=== PATIENT | female | born 1950 | race Caucasian/White ===

== ENCOUNTER → 2016-12-12 | Outpatient (CLI) | payer MEDICARE | END | disposition home or self-care (01) | LOC: GMAJ 13:57 | PROVIDERS: ATTEND Family Medicine | DX: E78.1 Pure hyperglyceridemia (principal); I10 Essential (primary) hypertension ==

== ENCOUNTER → 2016-12-20 | Outpatient (CLI) | payer MEDICARE ==
--- NOTE | 2016-12-20 13:40 | MRI ---
EXAM DESCRIPTION: Lumbar Spine w/o Contrast CLINICAL HISTORY: LOW BACK PAIN. Lumbar disc disease. Prior lumbar surgeries. History of polio. COMPARISON: MRI lumbar spine 07/10/2014 TECHNIQUE: MRI of the lumbar spine is performed according to our usual protocol with axial and sagittal multi sequence imaging. FINDINGS: The designated L5-S1 disc space is on axial T2 image 3. Moderate to severe levoconvex curvature of the mid lumbar spine is again demonstrated. Vertebral body statures maintained. Modic type II endplate changes at L1-L2, L3-L4, and L4-L5. There is no acute fracture or destructive osseous lesion. The conus medullaris terminates normally. L1-2: Disc desiccation with moderate disc narrowing. Moderate to severe facet hypertrophy. No evidence of spinal canal or neural foraminal stenosis. L2-3: Disc desiccation. Mild disc narrowing to the right of midline. Severe facet hypertrophy with ligamentum flavum thickening. No evidence of spinal canal or neural foraminal stenosis. L3-4: Disc desiccation. Severe facet hypertrophy. No evidence of spinal canal or neural foraminal stenosis. L4-5: Disc desiccation. Severe facet hypertrophy with suspected fusion in the posterior elements. 4 mm leftward eccentric posterior disc osteophyte complex with multifactorial moderate spinal canal stenosis with residual AP diameter of the thecal sac measuring 6.5 mm. Severe left greater than right neural foraminal stenosis. L5-S1: Severe facet hypertrophy. Suspected fusion in the posterior elements. Mild posterior disc bulge and osteophytic ridging of the endplates. Moderate to severe bilateral neural foraminal stenosis mainly on the basis of facet hypertrophy. The spinal canal is patent. IMPRESSION: 1. Moderate to severe levoconvex scoliosis in the lumbar spine is again demonstrated. 2. At L4-L5, moderate spinal canal stenosis and severe left greater than right neural foraminal stenosis are again demonstrated, and are not significantly changed from the prior exam. 3. At L5-S1, there is moderate to severe bilateral neural foraminal stenosis. 4. Other findings as above. Electronically signed by: Toan Haywood MD 12/20/2016 1:39 PM CDT
== END | disposition home or self-care (01) ==
LOC: MRI 09:48
PROVIDERS: ATTEND Family Medicine
DX: M51.27 Other intervertebral disc displacement, lumbosacral region (principal)

== ENCOUNTER → 2017-11-27 | Outpatient (CLI) | payer MEDICARE | LOC: GMAJ 17:09 | PROVIDERS: ATTEND Family Medicine | DX: I10 Essential (primary) hypertension (principal) ==

== ENCOUNTER → 2018-06-11 | Outpatient (CLI) | payer MEDICARE | LOC: GMAJ 16:27 | PROVIDERS: ATTEND Family Medicine | DX: E53.8 Deficiency of other specified B group vitamins (principal); E55.9 Vitamin D deficiency, unspecified ==

== ENCOUNTER → 2018-06-14 | Outpatient (CLI) | payer MEDICARE ==
--- NOTE | 2018-06-14 16:39 | CT ---
EXAM DESCRIPTION: Chest w/Contrast : Computed Tomography. CLINICAL HISTORY: COUGH COMPARISON: Portable chest x-ray 05/18/2017. TECHNIQUE: Spiral-axial scans at 5.0 mm intervals through the lungs and thorax with IV contrast. 2.5 mm lung algorithm axial reconstructions. Coronal sagittal 2.0 Mm reconstructions. No adverse reactions. Total Exam DLP: 794.14 mGy-cm. This exam was performed according to our departmental dose-optimization program which includes automated exposure control, adjustment of the mA and/or kV according to patient size and/or use of iterative reconstruction technique; to reduce radiation dose to as low as reasonably achievable (ALARA). FINDINGS: Tiny small blebs in the parenchyma more prevalent in the bilateral upper lobes compared to the bilateral lower lung zheng. No abnormal nodules masses or infiltrates bilaterally. Atelectasis and volume loss in the left lower lobe due to large medial posterior left gretchen- diaphragmatic hernia containing the stomach. No pleural effusion or pneumothorax bilaterally. Thyroid gland enhances well in the base of the neck. No abnormally sized lymph nodes or soft tissue masses in the mediastinum, hilum, axilla or neck base. Asymmetric density in the lower outer quadrant of the right breast. Asymmetric fatty tissue with edema or increased fatty density abutting the left lower lung base and extends to the lateral left abdomen subcutaneous tissue. No definite mass.. Upper spleen is partially within the hernia described above. Included peritoneal space shows no free air or fluid. Surgical clips in the gallbladder fossa with no fluid. Minimal dilation of the common bile duct. Included pancreas is negative. Thoracic spondylosis. Dextroscoliosis of the mid and upper thoracic spine. Included lumbar spine with levoscoliosis and spondylosis from T1 to L2. IMPRESSION: 1. Minimal centrilobular type emphysematous changes with no abnormal nodule mass or infiltrate. 2. Large posterior medial hernia in the left hemidiaphragm containing the fundus and upper body of the stomach in the upper spleen along with mesenteric fat. No gastric volvulus. Mass effect with atelectasis on the left lower lobe. Consider surgical evaluation if this hernia is compromising pulmonary or gastrointestinal function. 3. Prominence and edema of subcutaneous tissues lateral to the left thoracoabdominal wall extending inferiorly. No definite mass or fluid collection. 4. Asymmetric density in the lower outer quadrant of the right breast. PACS shows most recent mammogram at this facility was July 2015. Consider bilateral diagnostic digital breast tomosynthesis mammography. Electronically signed by: Beny Bustillos MD 06/14/2018 4:38 PM CDT
== END ==
LOC: CT 09:40
PROVIDERS: ATTEND Family Medicine
DX: R05 Cough (principal); K44.9 Diaphragmatic hernia without obstruction or gangrene

== ENCOUNTER → 2018-07-05 | Outpatient (CLI) | payer MEDICARE ==
--- NOTE | 2018-07-05 17:10 | RAD ---
EXAM DESCRIPTION: Barium Swallow: Rad-Fluoroscopy. CLINICAL HISTORY: DIAPHRAGMATIC HERNIA WITHOUT OBSTRUCTION. 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 Sensation of food being stuck in the distal esophagus. Reflux. Occasional abdominal pain. COMPARISON: None. TECHNIQUE: The patient swallowed barium pill with water. The patient swallowed gas-producing granules, and water, prior to beginning on the fluoroscopic table. Patient then drank heavy density barium through a straw under fluoroscopic visualization in the semiprone position. The images were obtained with the patient prone supine and decubitus. 37 fluoroscopic cine loop images. 18 static fluoroscopic images. Total fluoroscopy time was 3.5 minutes. DAP: not recorded. FINDINGS: Patient has delayed primary peristaltic wave distally. No irene pharyngeal aspiration. Distal esophagus angled almost 90 degrees posteriorly before entering the gastroesophageal junction. The fundus and the proximal body of the stomach, with para-esophageal hernia above the left gretchen-diaphragm in the posterior direction. This is best demonstrated on cine series #1, image 2. Thickened mucosal folds in the fundus. When changing positions on the table, marked gastroesophageal reflux was noted almost at the level of the larynx. Breast demonstrated on RF series 7, image 17. Remainder of the stomach well distended with gas and contrast material with no thickened folds in the distal body and antrum or pylorus. Duodenal bulb well distended. No mucosal duodenal lesions or mass effect. IMPRESSION: 1. Marked paraesophageal hernia involving the fundus and the proximal body of the stomach in the medial posterior left hemidiaphragm. Distal esophagus angulated almost 90 degrees. Marked gastroesophageal reflux almost to the larynx. 2. Thickened folds in the fundus and body of the stomach could represent gastritis. No other intrinsic lesions or mass effect. No abnormal is unremarkable. Electronically signed by: Beny Bustillos MD 07/05/2018 5:09 PM CDT
== END ==
LOC: RAD 07:44
PROVIDERS: ATTEND Family Medicine
DX: K44.9 Diaphragmatic hernia without obstruction or gangrene (principal)

== ENCOUNTER 2018-09-08 12:47 | Emergency (ER) | payer MEDICARE, OTHER ==
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
[2018-09-08 13:23] VITALS: TEMP 97.4
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
[2018-09-08 14:41] VITALS: BP 145/84; O2SAT 98
== END 2018-09-08 14:40 | disposition home or self-care (01) ==
LOC: ER 12:47
DX: S82.55XA Nondisplaced fracture of medial malleolus of left tibia, initial encounter for closed fracture (principal); K21.9 Gastro-esophageal reflux disease without esophagitis; W23.0XXA Caught, crushed, jammed, or pinched between moving objects, initial encounter; V49.59XA Passenger injured in collision with other motor vehicles in traffic accident, initial encounter; Y92.410 Unspecified street and highway as the place of occurrence of the external cause; Z86.12 Personal history of poliomyelitis; Z99.3 Dependence on wheelchair; Z79.899 Other long term (current) drug therapy; Z87.891 Personal history of nicotine dependence; Z88.8 Allergy status to other drugs, medicaments and biological substances

== ENCOUNTER → 2018-09-14 | Outpatient (CLI) | payer MEDICARE ==
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
== END ==
LOC: RAD 09:03
PROVIDERS: ATTEND Orthopaedic Surgery
DX: S82.54XA Nondisplaced fracture of medial malleolus of right tibia, initial encounter for closed fracture (principal)

== ENCOUNTER → 2018-10-01 | Outpatient (CLI) | payer MEDICARE ==
--- NOTE | 2018-10-01 09:42 | RAD ---
EXAM DESCRIPTION: Ankle,Left 3 Views CLINICAL HISTORY: ANKLE PAIN COMPARISON: 14 September 2018 TECHNIQUE: 3 views left FINDINGS: The exam is obtained through casting material. A fracture of the medial malleolus is observed. The injury is essentially nondisplaced. The ankle mortise is intact. No callus formation is visualized through the cast IMPRESSION: Left medial malleolar fracture Electronically signed by: Dao Monteiro MD 10/01/2018 9:41 AM [facility]
== END ==
LOC: RAD 09:07
PROVIDERS: ATTEND Orthopaedic Surgery
DX: S82.892A Other fracture of left lower leg, initial encounter for closed fracture (principal)

== ENCOUNTER → 2018-10-12 | Outpatient (CLI) | payer MEDICARE ==
--- NOTE | 2018-10-12 13:33 | RAD ---
EXAM DESCRIPTION: Ankle,Left 3 Views CLINICAL HISTORY: CLOSED FX OF MEDIAL MALLEOLUS COMPARISON: October 01, 2018 IMPRESSION: 3 views of the left ankle again demonstrate mildly displaced medial malleolar fracture similar to previous exam with moderate lucency around the fracture site and no significant callus formation or bridging bony union at this time. Ankle mortise appears maintained. Osseous structures are diffusely osteopenic and fiberglass cast around the ankle obscures fine bony detail. Electronically signed by: Fox Green MD 10/12/2018 1:31 PM [facility]
== END ==
LOC: RAD 10:03
PROVIDERS: ATTEND Orthopaedic Surgery
DX: S82.55XD Nondisplaced fracture of medial malleolus of left tibia, subsequent encounter for closed fracture with routine healing (principal)

== ENCOUNTER → 2018-11-05 | Outpatient (CLI) | payer MEDICARE ==
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
== END ==
LOC: RAD 07:53
PROVIDERS: ATTEND Orthopaedic Surgery
DX: S82.55XD Nondisplaced fracture of medial malleolus of left tibia, subsequent encounter for closed fracture with routine healing (principal)

== ENCOUNTER → 2018-11-16 | Outpatient (CLI) | payer MEDICARE | LOC: GMAJ 11:10 | PROVIDERS: ATTEND Family Medicine | DX: E53.8 Deficiency of other specified B group vitamins (principal); E55.9 Vitamin D deficiency, unspecified ==

== ENCOUNTER → 2019-03-12 | Outpatient (CLI) | payer MEDICARE | LOC: LAB.O 12:29 | PROVIDERS: ATTEND Orthopaedic Surgery | DX: Z01.818 Encounter for other preprocedural examination (principal) ==

== ENCOUNTER 2019-03-19 05:40 | Day surgery (SDC) | payer MEDICARE ==
--- NOTE | 2019-03-18 13:37 | HP ---
CHIEF COMPLAINT: Left hand numbness. HISTORY OF PRESENT ILLNESS: Brian is a 68-year-old female that we had talked about having carpal tunnel release in the past. She has had numbness going on in her hand for several years. She has had no new trauma and states that it is now numb all the time. It does worsen with certain activities. Because of the presence of it and the lack of response to conservative measures, she has requested operative intervention. After discussing the risks, benefits and alternatives to that, she has given informed consent. PAST SURGICAL HISTORY: 1. Spinal fusion. 2. . 3. Cholecystectomy. 4. Hysterectomy. 5. Bilateral rotator cuff repair. 6. Cystectomy. 7. Carpal tunnel release. 8. Hiatal hernia repair. 9. Ulnar nerve transposition. MEDICATIONS: 1. Bisoprolol. 2. Gabapentin. 3. Dexilant. 4. Clonazepam. 5. Duloxetine. 6. Cyclobenzaprine. 7. Aleve. 8. Fluticasone. ALLERGIES: DEMEROL, MORPHINE, REGLAN. CODE STATUS: Full code. IMMUNIZATIONS: Up to date. SOCIAL HISTORY: The patient does not smoke or use any illicit drugs. She does drink on occasion. FAMILY HISTORY: None pertinent to today's complaint. REVIEW OF SYSTEMS: Negative except as indicated in the History of Present Illness. PHYSICAL EXAMINATION: VITAL SIGNS: Blood pressure 129/73. Pulse 81. Height 4'10". Weight 155 pounds. MENTAL STATUS: The patient is awake, alert, and is able to give a good history and participate in the physical. The patient is oriented to person, place and time. SKIN: Normal tone and turgor. MUSCULOSKELETAL: She has positive carpal compression test and significant thenar atrophy. She has paresthesias at rest in the distribution of the median nerve. She has a warm and well perfused extremity. She has no deformities in the hand and shows full range of motion in the shoulder, elbow, wrist and digits. ASSESSMENT: 1. Carpal tunnel syndrome. PLAN: The plan at this point is for carpal tunnel release. Brian and I have discussed in the past the risks, benefits and alternatives to this and we have also discussed the potential for limited recovery just given her presence of symptoms now on a continual basis. After considering the risks, benefits and alternatives to this, she has given informed consent. #[id number] [facility]
[2019-03-19] MEDS ORDERED: BUPIVACAINE 0.25% INJ 30 ML VIAL INJ ONE (08:44)
[2019-03-19] MEDS ORDERED: LIDOCAINE 1% 10 ML VIAL INJ ONE ×2 (08:45→10:00)
[2019-03-19] MEDS ORDERED: PROPOFOL 200 MG/20 ML VIAL IV ONE (10:00)
[2019-03-19] MEDS ORDERED: SODIUM CHL 0.9% 100ML MINI-BAG 100 ML IVPB ONE (10:19)
[2019-03-19] MEDS ORDERED: ceFAZolin SODIUM 1 GM VIAL ONE (10:19)
[2019-03-19] MEDS ORDERED: LACTATED RINGERS 1,000 ML ONE (10:19)
[2019-03-19] MEDS ORDERED: fentaNYL CITRATE INJ 50 MCG/ML AMP ONE (11:34)
[2019-03-19] MEDS ORDERED: MIDAZOLAM INJ 2 MG/2 ML VIAL ONE (11:34)
[2019-03-19] MEDS: ceFAZolin SODIUM 1 GM VIAL ONE ×2 (12:05→12:10)
[2019-03-19] MEDS: VANCOMYCIN HCL INJ 1,000 MG VIAL IVPB ONE ×2 (12:06→12:10)
[2019-03-19 14:24] VITALS: BP 115/75; TEMP 98.1; O2SAT 98
--- NOTE | 2019-03-22 09:06 | OP ---
DATE OF PROCEDURE: 03/19/19 PREOPERATIVE DIAGNOSIS: 1. Carpal tunnel syndrome. POSTOPERATIVE DIAGNOSIS: 1. Carpal tunnel syndrome. PROCEDURE: 1. Carpal tunnel release. SURGEON: Reginaldo Canales MD. DISTRICT OPERATIONS MANAGER: Beny Neville CST, SA-C. ANESTHESIA: Local with sedation. COMPLICATIONS: None. FINDINGS: 1. Advanced thenar atrophy. 2. Narrowing of the median nerve across the carpal tunnel. INDICATION: Ms. Olivas has a long history of carpal tunnel syndrome. She has delayed undergoing carpal tunnel release for quite some time. She finally decided to pursue that. After discussing the risks, benefits and alternatives to that, the patient has given informed consent for carpal tunnel release. PROCEDURE: The patient was brought to the Operating Room and placed in the supine position. Sedation was administered and local anesthetic was injected into the operative area under sterile conditions. After the injection of anesthetic, the arm was sterilely prepped and draped. A longitudinal incision was made directly overlying the transverse carpal ligament and blunt dissection was carried down to the ligament. The transverse carpal ligament was sharply transected along its length and a [place] elevator was used to ensure complete release of the ligament. Once release had been confirmed, the wound was thoroughly irrigated and the wound was closed with Nylon suture. A sterile dressing was placed and the patient was taken to the Day Surgery Unit. POSTOPERATIVE PLAN: The patient has been encouraged to do range of motion of the digits and will followup with us in two days. #[id number] [facility]
== END 2019-03-19 13:20 | disposition home or self-care (01) ==
LOC: AMB 05:40
PROVIDERS: ATTEND Orthopaedic Surgery
DX: G56.02 Carpal tunnel syndrome, left upper limb (principal); I10 Essential (primary) hypertension; G14 Postpolio syndrome; K21.9 Gastro-esophageal reflux disease without esophagitis; M51.36 Other intervertebral disc degeneration, lumbar region; G25.81 Restless legs syndrome; D50.9 Iron deficiency anemia, unspecified; Z98.1 Arthrodesis status; Z90.710 Acquired absence of both cervix and uterus; Z88.5 Allergy status to narcotic agent; Z88.8 Allergy status to other drugs, medicaments and biological substances; Z79.899 Other long term (current) drug therapy
CPT/HCPCS: 01810; 64721; 80307; J0690; J2250; J3010; J3370; J3490; J7050; J7120

== ENCOUNTER 2019-07-15 16:16 | Emergency (ER) | payer MEDICARE ==
[2019-07-15] MEDS ORDERED: SODIUM CHLORIDE 0.9% 1000ML 1,000 ML IVS ONE (16:39)
[2019-07-15] MEDS ORDERED: SODIUM CHLORIDE 0.9% (FLUSH) 10 ML SYG IV PRN (16:39)
[2019-07-15] MEDS ORDERED: PIPERACILLIN/TAZOBACTAM 4.5 GM in SODIUM CHLORIDE 0.9% 100ML 100 ML IVPB ONE (16:41)
[2019-07-15] MEDS ORDERED: fentaNYL CITRATE INJ 50 MCG/ML AMP IV ONE (16:41)
[2019-07-15] MEDS ORDERED: ONDANSETRON INJ 4 MG/2 ML VIAL IV ONE (16:41)
--- NOTE | 2019-07-15 16:49 | ED.PDOC ---
History of Present Illness - General Chief Complaint: Abdominal Pain Time Seen by Provider: 07/15/19 16:31 Information Source: patient - History of Present Illness Initial Comments: 69 y/o F with hx of polio myelitis presents to the ED c/o worsening abd and back pain over the last 2 days. She has a hx of chronic back and abd pain but sx have been worse over the last few weeks and she saw her PCP last week and was treated for constipation. She has since been having BMs but pain has persisted. She takes home pain medications only when needed and took it last night without improvement in sx. She has a second fundiplication done in Oct [address] Aguiar at [facility] in [facility] and had been good up until April with her stomach. Since then it seems that she has gone down hill. She states that she has been trying to eat but sx are significantly worse after eating. Pain now is 10/10 in severity and nothing she does seems to make it significantly better or worse. She denies fever/chills. No diarrhea or blood in stool. She was sent to the ED from her PCP office for a WBC if 22k and concerns for infection and that she needed a CT scan. Review of Systems - Review of Systems Constitutional: Denies: chills, fever EENTM: Denies: nose congestion, throat pain Respiratory: Denies: cough, short of breath Cardiology: Denies: chest pain, palpitations Gastrointestinal/Abdominal: States: abdominal pain, nausea. Denies: diarrhea, vomiting Genitourinary: Denies: dysuria, frequency, hematuria Musculoskeletal: States: back pain. Denies: joint pain, muscle pain Skin: Denies: lesions, rash Neurological: Denies: headache, paresthesia, weakness Past Medical History (General) - Patient Medical History Hx Stroke: No Hx Congestive Heart Failure: No Hx Hypertension: Yes Hx Diabetes: No Hx Gastroesophageal Reflux: Yes Hx MRSA: No Surgical History: cholecystectomy, Hysterectomy, other - Vaccination History Hx Influenza Vaccination: Yes Hx Pneumococcal Vaccination: Yes - Social History Hx Tobacco Use: No Hx Alcohol Use: No Hx Substance Use: No Hx Depression: No Hx Physical Abuse: No Hx Emotional Abuse: No Hx Suspected Abuse: No - Female History Patient : No Family Medical History - Family History Mother Living Status: Hx Family Hypertension: Yes - dad Hx Family Diabetes: Yes - dad,brother Hx Family Cancer: Yes - mom-uterine;brother-kidney Hx Family;Other: dementia-dad Physical Exam - Physical Exam General Appearance: Agitated - diffuse, Obvious distress Eyes, Ears, Nose, Throat Exam: PERRL/EOMI, normal ENT inspection, pharynx normal Neck: full range of motion, normal inspection Respiratory: lungs clear, normal breath sounds, no respiratory distress Cardiovascular/Chest: normal peripheral pulses, no edema, tachycardia Peripheral Pulses: 2+ Gastrointestinal/Abdominal: tenderness - diffuse, other - multiple well healed previous surgical scars Back Exam: decreased range of motion, vertebral tenderness, other - scoliosis and well healed surgical scars Extremity: other - contractures to BLE with muscle wasting to BLE. UE normal Neurologic: alert, other - Chronic contractures to LE with muscle wasting. No acute focal deficiets Skin Exam: normal color, warm/dry Progress - Progress Progress: 07/15/19 18:45 Lab and imaging results discussed with pt. We discussed CT findings of diverticulitis and hip effusion. Labs reviewed and show leukocytosis with nl lactic acid. Chemistry unremarkable. These findings were discussed with pt along with discussion of inpatient vs out pt treatment. I discussed admission and pt states that she would prefer to try out patient management if at all possible. We discussed cipro, flagyl, nausea medication and use of her home hydorcodone for pain. She was advised to call her PCP tomorrow to update them of our findings today and to schedule a f/u appt as soon as possible. We also discussed that at some point she will need a referral to GI for a colonoscopy. She was told to return at any point if she feels like pain is uncontrolled, has fever or generally feels like her condition has worsened. Pt voiced understanding and agrees with this treatment plan and all questions/concerns were addressed. - Results/Orders Results/Orders: 07/15/19 16:39 Sodium Chloride 0.9% (Flush) [Saline Flush Syringe] 10 ml IV PRN PRN 07/15/19 16:40 IV Care:Saline Lock per Protoc QSHIFT Telemetry .ONCE EKG Stat Pulse Ox Stat URINALYSIS Stat 07/15/19 16:41 Hold Metformin x 48Hrs [id number] 07/15/19 17:37 BLOOD CULTURE Stat 07/15/19 18:45 LACTIC ACID Q2H 07/15/19 20:45 LACTIC ACID Q2H 07/15/19 22:45 LACTIC ACID Q2H 07/16/19 00:45 LACTIC ACID Q2H 07/16/19 02:45 LACTIC ACID Q2H 07/16/19 04:45 LACTIC ACID Q2H 07/16/19 06:45 LACTIC ACID Q2H 07/16/19 08:45 LACTIC ACID Q2H 07/16/19 10:45 LACTIC ACID Q2H 07/16/19 12:45 LACTIC ACID Q2H 07/16/19 14:45 LACTIC ACID Q2H Laboratory Results - last 24 hr 07/15/19 07/15/19 07/15/19 16:50 16:50 16:50 WBC 20.0 H RBC 5.32 Hgb 13.6 Hct 41.5 MCV 78.1 L MCH 25.5 L MCHC 32.6 L RDW 18.6 H Plt Count 327 MPV 7.6 Absolute Neuts (auto) Not Reportable Absolute Lymphs (auto) Not Reportable Absolute Monos (auto) Not Reportable Absolute Eos (auto) Not Reportable Neutrophils % Not Reportable Neutrophils % (Manual) 76.0 Lymphocytes % Not Reportable Lymphocytes % (Manual) 19.0 Monocytes % Not Reportable Monocytes % (Manual) 2.0 Eosinophils % Not Reportable Basophils % Not Reportable Band Neutrophils 2.0 Eosinophils 1.0 Platelet Estimate Normal Normal RBC Morphology Normal rbc morph PT 10.6 INR 1.06 Sodium 134 L Potassium 3.8 Chloride 101 Carbon Dioxide 22 Anion Gap 14.8 BUN 8 Creatinine < 0.40 L BUN/Creatinine Ratio 20.0 Random Glucose 104 Serum Osmolality 266.9 L Lactic Acid Calcium 9.4 Total Bilirubin 1.1 H AST 24 ALT 19 Alkaline Phosphatase 94 Creatine Kinase 77 CK-MB (CK-2) 2.2 CK-MB (CK-2) % Not Reportable Troponin I 0.03 Serum Total Protein 6.9 Albumin 3.4 Globulin 3.5 Albumin/Globulin Ratio 1.0 L 07/15/19 16:50 WBC RBC Hgb Hct MCV MCH MCHC RDW Plt Count MPV Absolute Neuts (auto) Absolute Lymphs (auto) Absolute Monos (auto) Absolute Eos (auto) Neutrophils % Neutrophils % (Manual) Lymphocytes % Lymphocytes % (Manual) Monocytes % Monocytes % (Manual) Eosinophils % Basophils % Band Neutrophils Eosinophils Platelet Estimate Normal RBC Morphology PT INR Sodium Potassium Chloride Carbon Dioxide Anion Gap BUN Creatinine BUN/Creatinine Ratio Random Glucose Serum Osmolality Lactic Acid 1.1 Calcium Total Bilirubin AST ALT Alkaline Phosphatase Creatine Kinase CK-MB (CK-2) CK-MB (CK-2) % Troponin I Serum Total Protein Albumin Globulin Albumin/Globulin Ratio CT Abd/Pelvis: IMPRESSION: Uncomplicated acute diverticulitis of the distal sigmoid/rectosigmoid colon. Presence of a large left hip joint effusion and degenerative changes. Postcholecystectomy. Mild scoliosis and degenerative changes involving the lumbar spine. Electronically signed by: Becky Moore MD 07/15/2019 6:29 PM CDT Workstation: [id number] CXR: IMPRESSION: Left basilar atelectasis. Electronically signed by: Becky Moore MD 07/15/2019 6:20 PM CDT Workstation: [id number] - EKG/XRAY/CT EKG: Tachy - rate 111, nonspecific ST T wave Chg Comments: LAD. Normal intervals. - Consult/PCP Time Called: 19:09 - Discussed Pt lab and CT findings in ED along with pt preference to go home. He agrees with plan and will f/u in office. Consult/PCP: Dr. Guerra, PCP Departure - Departure Clinical Impression: Diverticulitis Leukocytosis, unspecified Qualifiers: Leukocytosis type: unspecified Qualified Code(s): D72.829 - Elevated white blood cell count, unspecified Abdominal pain Qualifiers: Abdominal location: generalized Qualified Code(s): R10.84 - Generalized abdominal pain Time of Disposition: 19:01 Disposition: Discharge to Home or Self Care Condition: Good Departure Forms: ED Discharge - Pt. Copy, Patient Portal Self Enrollment Instructions: DI for Abdominal Pain-Adult, Diverticulitis Diet: other - advance diet as tolerated Referrals: Ash Guerra MD [Primary Care Provider] - 1-2 Days Prescriptions: Ciprofloxacin [Cipro] 500 mg PO BID #20 tab metroNIDAZOLE [Flagyl] 500 mg PO Q8H #30 tab Ondansetron Odt (ER Disp) [Zofran ODT (ER DISP)] 4 mg PO Q8H PRN #7 tab PRN Reason: Nausea Home Medications: Ambulatory Orders Bisoprolol & Hydrochlorothiazi [Bisoprolol Fumarate/Brainerd 5-6.25 mg] 1 tab PO DAILY 09/08/18 Duloxetine HCl [Cymbalta] 60 mg PO DAILY 09/08/18 Gabapentin [Neurontin] 1,200 mg PO TID 09/08/18 Acetamin W/Cod #3 Tab [Tylenol w/CODEINE #3] 1 ea PO Q8HR 03/18/19 Cyanocobalamin Inj [Vitamin B-12 Inj] 1,000 mcg IM WKLY 03/18/19 Cyclobenzaprine Tab (ER Disp) [Flexeril Tab (ER Dispense)] 1 tablet PO PRN PRN 03/18/19 Fluticasone Propionate (Nasal) [Fluticasone Propionate] 50 mcg NA PRN PRN 03/18/19 cloNAZepam [Klonopin] 1 tablet PO DAILY 03/18/19 Ciprofloxacin [Cipro] 500 mg PO BID #20 tab 07/15/19 Ondansetron Odt (ER Disp) [Zofran ODT (ER DISP)] 4 mg PO Q8H PRN #7 tab 07/15/19 metroNIDAZOLE [Flagyl] 500 mg PO Q8H #30 tab 07/15/19 Additional Instructions: Return for persistent of uncontrolled pain, fevers or any other concerning signs/sx.
[2019-07-15] MEDS ORDERED: PIPERACILLIN/TAZOBACTAM 2.25 GM VIAL IVPB ONE (17:53)
[2019-07-15] MEDS ORDERED: SODIUM CHLORIDE 0.9% 100ML 100 ML IVPB ONE (17:54)
--- NOTE | 2019-07-15 18:21 | RAD ---
EXAM DESCRIPTION: XR Chest, one view CLINICAL HISTORY: abd pain. COMPARISON: CT chest with contrast June 14, 2018 FINDINGS: The heart is normal in size. The pulmonary vascularity is normal. The lungs are clear. No dense focal consolidation is seen. Discoid atelectasis is seen in the left lower lobe. No pneumothorax or pleural effusion is seen. Thoracolumbar scoliosis is noted. IMPRESSION: Left basilar atelectasis. Electronically signed by: Becky Moore MD 07/15/2019 6:20 PM CDT
--- NOTE | 2019-07-15 18:31 | CT ---
EXAM DESCRIPTION: CT Abdomen and Pelvis With Contrast: CLINICAL HISTORY: abd pain. COMPARISON: CT abdomen pelvis without contrast January 31, 2013. TECHNIQUE: Contiguous axial sections are obtained through the abdomen and pelvis as per protocol after administration of iodinated contrast. Oral contrast was not administered. . Sagittal and coronal reformations were obtained. Automatic exposure control (AEC), mA and/or kV adjustment by patient size, and/or iterative reconstructive technique was used, per departmental dose optimization program, during the performance of the CT examination. FINDINGS: The diamond setter view demonstrates no abnormalities . The visualized lung bases demonstrates small esophageal hernia. The liver is normal in size and demonstrates normal attenuation and enhancement. [The spleen, pancreas, adrenal glands appear normal in size and attenuation without any focal abnormalities. The gallbladder is surgically absent . Kidneys demonstrate no evidence of calculi. Kidneys are normal in size, shape, attenuation and enhancement. Focal parenchymal loss and thinning is noted at the upper pole of the left kidney. The aorta, IVC and retroperitoneal structures appear normal . The stomach demonstrates No abnormalities. . The small bowel loops appear unremarkable. The appendix is not visualized with certainty. No inflammatory changes are seen in the region of the base of the cecum, however. The colon demonstrates evidence of diverticulosis. Changes suggestive of diverticulitis are noted involving the rectosigmoid colon with colonic wall thickening and pericolonic stranding. No evidence of extraluminal air or fluid collection is noted. No evidence of free intraperitoneal fluid or air is noted. CT examination of the pelvis demonstrates no evidence of mass or adenopathy. The urinary bladder appears normal. The [Reproductive organs are absent surgically. Inguinal regions are unremarkable. Marked scoliosis of the thoracolumbar spine is noted. Evidence of degenerative changes are seen in the facet joints. Evidence of deformity and flattening of the left femoral head is noted with large left hip joint effusion. Subchondral cyst formation is noted in the left femoral head. Remodeling of the left acetabulum is noted. Presence of a small right hip joint effusion and capsular thickening is noted. Fatty replacement of the paraspinous and gluteal muscles are noted greater on the left than the right. IMPRESSION: Uncomplicated acute diverticulitis of the distal sigmoid/rectosigmoid colon. Presence of a large left hip joint effusion and degenerative changes. Postcholecystectomy. Mild scoliosis and degenerative changes involving the lumbar spine. Electronically signed by: Becky Moore MD 07/15/2019 6:29 PM CDT
[2019-07-15] MEDS ORDERED: HYDROmorphone HCL INJ 2 MG/ML VIAL IV ONE (18:55)
[2019-07-15] MEDS ORDERED: metroNIDAZOLE 500 MG TAB PO ONE (19:06)
[2019-07-15] MEDS ORDERED: CIPROFLOXACIN 500 MG TAB PO ONE (19:06)
[2019-07-15 20:13] VITALS: BP 138/81; TEMP 98.1; O2SAT 96
== END 2019-07-15 20:12 | disposition home or self-care (01) ==
LOC: ER 16:16
DX: K57.32 Diverticulitis of large intestine without perforation or abscess without bleeding (principal); D72.829 Elevated white blood cell count, unspecified; M25.452 Effusion, left hip; G89.29 Other chronic pain; M54.9 Dorsalgia, unspecified; I10 Essential (primary) hypertension; K21.9 Gastro-esophageal reflux disease without esophagitis; Z90.49 Acquired absence of other specified parts of digestive tract; Z86.12 Personal history of poliomyelitis; Z79.899 Other long term (current) drug therapy
CPT/HCPCS: 71045; 74177; 80053; 82550; 82553; 83605; 84484; 85025; 85610; 86140; 87040; 93005; J1170; J2405; J2543; J3010; J7030; J7050

== ENCOUNTER → 2019-07-31 | Outpatient (CLI) | payer MEDICARE ==
--- NOTE | 2019-08-01 13:19 | MRI ---
PROVIDED CLINICAL HISTORY/REASON FOR EXAM: SPINAL STENOSIS LUMBAR REGION TECHNIQUE: Multiplanar, multisequence MRI examination performed of the lumbar spine without intravenous contrast material. COMPARISON: December 20, 2016 FINDINGS: Five lumbar type vertebra are assumed. The designated L5/S1 disc space is at axial T2 image 3. Alignment: 40 degrees leftward curvature of the lumbar spine. No acute subluxation. Fracture: None present. Paraspinal Soft Tissues: Unremarkable. Retroperitoneum: Visible structures are unremarkable. Conus Medullaris: Termination at L1 level. Morphology is normal. T12/L1: Bilateral facet hypertrophy. No significant stenosis. L1/2: Asymmetric disc desiccation and loss of disc space height on the right. Bilateral facet hypertrophy. No significant stenosis. L2/3: Asymmetric disc desiccation and loss of disc space height on the right. Bilateral facet hypertrophy, right greater than left. No significant stenosis. L3/4: Asymmetric disc desiccation and loss of disc space height on the right. Right greater than left facet hypertrophy with thickening of the ligamentum flavum. No significant stenosis. L4/5: Disc desiccation with loss of disc space height and endplate degenerative change. Diffuse symmetric disc bulge osteophyte complex. Bilateral facet hypertrophy with thickening of the ligamentum flavum. Left facet joint effusion. Mild central canal stenosis. Mild bilateral lateral recess stenosis. Severe bilateral neural foraminal narrowing. L5/S1: Asymmetric right disc desiccation and loss of disc space height. Diffuse symmetric disc bulge osteophyte complex. Bilateral facet hypertrophy with thickening of the ligamentum flavum. Trace left facet joint effusion. Moderate central canal stenosis. Severe bilateral neural foraminal narrowing. Sacral Tarlov cysts. IMPRESSION: Multilevel lumbar spondylosis superimposed upon levoscoliosis most pronounced at L4/L5 and L5/S1 as above. Electronically signed by: Blas Tsai MD 08/01/2019 1:17 PM [facility]
== END ==
LOC: MRI 10:51
PROVIDERS: ATTEND Family Medicine
DX: M48.062 Spinal stenosis, lumbar region with neurogenic claudication (principal); M47.896 Other spondylosis, lumbar region; M41.86 Other forms of scoliosis, lumbar region

== ENCOUNTER → 2019-08-05 | Outpatient (CLI) | payer MEDICARE ==
--- NOTE | 2019-08-05 10:53 | RAD ---
EXAM DESCRIPTION: Hip Bilateral (accession [id number]), Pelvis (accession [id number]) CLINICAL HISTORY: 69 years Female, HIP PAIN COMPARISON: None. Findings: Partially imaged multilevel lumbar spondylosis. Left gluteal soft tissue calcification. Degenerative changes in the sacroiliac joints. Osteopenia. Right hip: Shallow acetabulum with mild right hip osteoarthritis. No acute fracture or dislocation is identified. Left hip: Shallow acetabulum, with sequela of left hip dysplasia. Similar osseous remodeling of the femoral head and acetabulum. There is no acute extra or dislocation identified. The femoral head is superiorly and laterally subluxed with respect to the acetabulum. Suspect a large left hip joint effusion. Findings are overall similar when compared with 01/31/2013 examination. IMPRESSION: Chronic and degenerative changes in the pelvis. No acute fracture is identified. However osteopenia limits evaluation. If there is concern for fracture, MRI would be helpful for further evaluation. Electronically signed by: Blas Tsai MD 08/05/2019 10:51 AM [facility]
--- NOTE | 2019-08-05 10:53 | RAD ---
EXAM DESCRIPTION: Hip Bilateral (accession [id number]), Pelvis (accession [id number]) CLINICAL HISTORY: 69 years Female, HIP PAIN COMPARISON: None. Findings: Partially imaged multilevel lumbar spondylosis. Left gluteal soft tissue calcification. Degenerative changes in the sacroiliac joints. Osteopenia. Right hip: Shallow acetabulum with mild right hip osteoarthritis. No acute fracture or dislocation is identified. Left hip: Shallow acetabulum, with sequela of left hip dysplasia. Similar osseous remodeling of the femoral head and acetabulum. There is no acute extra or dislocation identified. The femoral head is superiorly and laterally subluxed with respect to the acetabulum. Suspect a large left hip joint effusion. Findings are overall similar when compared with 01/31/2013 examination. IMPRESSION: Chronic and degenerative changes in the pelvis. No acute fracture is identified. However osteopenia limits evaluation. If there is concern for fracture, MRI would be helpful for further evaluation. Electronically signed by: Blas Tsai MD 08/05/2019 10:51 AM [facility]
== END ==
LOC: RAD 09:39
PROVIDERS: ATTEND Orthopaedic Surgery
DX: M16.0 Bilateral primary osteoarthritis of hip (principal); M85.88 Other specified disorders of bone density and structure, other site

== ENCOUNTER 2019-08-12 10:43 | Emergency (ER) | payer MEDICARE ==
[2019-08-12] MEDS ORDERED: PROMETHAZINE HCL INJ 25 MG in SODIUM CHLORIDE 0.9% 50ML 50 ML IVPB ONE (11:01)
[2019-08-12] MEDS ORDERED: HYDROmorphone HCL INJ 2 MG/ML VIAL IV ONE (11:01)
[2019-08-12] MEDS ORDERED: PROMETHAZINE HCL INJ 25 MG/ML VIAL ONE (11:05)
[2019-08-12] MEDS ORDERED: SODIUM CHLORIDE 0.9% 50ML 50 ML ONE (11:05)
[2019-08-12 11:51] VITALS: O2SAT 94
--- NOTE | 2019-08-12 12:24 | CT ---
EXAM DESCRIPTION: Abdoment/Pelvis w/o Contrast CLINICAL HISTORY: 69 years Female, right flank pain, diverticulitis 2 wks ago COMPARISON: CT abdomen and pelvis with contrast dated 07/15/2019. TECHNIQUE: Contiguous 3 mm axial images were obtained from the lung bases to the level of the proximal femora without the administration of intravenous or oral contrast. Sagittal and coronal reconstructions were reviewed. FINDINGS: Limited evaluation of the solid organs due to the lack of intravenous contrast. THORAX: The imaged lower thorax demonstrates no gross abnormality. LIVER: The liver demonstrates normal size and density with no intrahepatic biliary ductal dilatation. GALLBLADDER: Surgically absent. PANCREAS: Appears normal with no cystic or solid lesions. SPLEEN: Normal ADRENAL GLANDS: Normal with no nodules or masses. KIDNEYS: Both kidneys are symmetric in size and contour with no hydronephrosis or nephrolithiasis or perinephric fluid collections. The visualized ureters appear grossly unremarkable. STOMACH: Small hiatal hernia is noted. The stomach is not well-distended limiting detailed evaluation. SMALL BOWEL: The small bowel loops demonstrate variable degrees of distention with no abnormal dilatation or other signs to suggest bowel obstruction. LARGE BOWEL: Multiple diverticuli are identified. The transverse and descending colon is not well-distended limiting detailed evaluation. Large amount of fecal material is identified in the ascending colon and proximal transverse colon, consistent with constipation. No evidence of free intraperitoneal air or fluid. RETROPERITONEUM: The abdominal aorta is nonaneurysmal with mild atherosclerosis. The inferior vena cava is normal in size and caliber. No abnormally enlarged retroperitoneal lymph nodes are identified. URINARY BLADDER:The urinary bladder is well-distended with no gross abnormality. The uterus and ovaries are surgically absent. ADDITIONAL FINDINGS: None. BONES: Moderate to severe degenerative changes are identified in the visualized bones. Bilateral hip joint effusions are identified. Moderate to severe osteoarthritis of the left hip with significant synovial thickening. IMPRESSION: 1. Interval resolution of the previously identified acute diverticulitis. 2. Large amount of fecal material is noted in the ascending colon and proximal transverse colon. 3. Small hiatal hernia with reflux. This exam was performed according to our departmental dose-optimization program, which includes automated exposure control, adjustment of the mA and/or kV according to patient size and/or use of iterative reconstruction technique. Electronically signed by: Shana Mancilla MD 08/12/2019 12:23 PM [facility]
--- NOTE | 2019-08-12 12:57 | ED.PDOC ---
History of Present Illness - General Chief Complaint: Abdominal Pain Stated Complaint: R flank discomfort Time Seen by Provider: 08/12/19 10:52 Source: patient Exam Limitations: no limitations - History of Present Illness Initial Comments: The patient is a 69-year-old female presenting to emergency room secondary to severe pain in the right flank and abdomen starting yesterday evening. She did recently have a bout of diverticulitis. She does have some chronic constipation issues. No fever. Mild nausea but no vomiting. No definite urinary symptoms. No chest pain or shortness of breath. Timing/Duration: 24 hours Severity: moderate Improving Factors: nothing Worsening Factors: nothing Associated Symptoms: malaise, nausea/vomiting Allergies/Adverse Reactions: Allergies Meperidine Allergy (Verified 08/12/19 10:55) Metoclopramide [From Reglan] Allergy (Verified 08/12/19 10:55) Morphine Allergy (Verified 08/12/19 10:55) Home Medications: Ambulatory Orders Bisoprolol & Hydrochlorothiazi [Bisoprolol Fumarate/[place] 5-6.25 mg] 1 tab PO DAILY 09/08/18 Duloxetine HCl [Cymbalta] 60 mg PO DAILY 09/08/18 Gabapentin [Neurontin] 1,200 mg PO TID 09/08/18 Acetamin W/Cod #3 Tab [Tylenol w/CODEINE #3] 1 ea PO Q8HR 03/18/19 Cyanocobalamin Inj [Vitamin B-12 Inj] 1,000 mcg IM WKLY 03/18/19 Cyclobenzaprine Tab (ER Disp) [Flexeril Tab (ER Dispense)] 1 tablet PO PRN PRN 03/18/19 Fluticasone Propionate (Nasal) [Fluticasone Propionate] 50 mcg NA PRN PRN 03/18/19 cloNAZepam [Klonopin] 1 tablet PO DAILY 03/18/19 Ciprofloxacin [Cipro] 500 mg PO BID #20 tab 07/15/19 Ondansetron Odt (ER Disp) [Zofran ODT (ER DISP)] 4 mg PO Q8H PRN #7 tab 07/15/19 metroNIDAZOLE [Flagyl] 500 mg PO Q8H #30 tab 07/15/19 Review of Systems - Review of Systems Constitutional: States: no symptoms reported EENTM: States: no symptoms reported Respiratory: States: no symptoms reported Cardiology: States: no symptoms reported Gastrointestinal/Abdominal: States: abdominal pain, constipation, nausea Genitourinary: States: no symptoms reported Musculoskeletal: States: back pain Skin: States: no symptoms reported Neurological: States: no symptoms reported Endocrine: States: no symptoms reported All other Systems: No Change from Baseline Past Medical History (General) - Patient Medical History Hx Stroke: No Hx Congestive Heart Failure: No Hx Hypertension: Yes Hx Diabetes: No Hx Gastroesophageal Reflux: Yes Hx MRSA: No - Vaccination History Hx Influenza Vaccination: Yes Hx Pneumococcal Vaccination: Yes - Social History Hx Tobacco Use: No Hx Alcohol Use: No Hx Substance Use: No Hx Depression: No Hx Physical Abuse: No Hx Emotional Abuse: No Hx Suspected Abuse: No - Female History Patient : No Family Medical History - Family History Mother Living Status: Hx Family Hypertension: Yes - dad Hx Family Diabetes: Yes - dad,brother Hx Family Cancer: Yes - mom-uterine;brother-kidney Hx Family;Other: dementia-dad Physical Exam - Physical Exam General Appearance: Alert, Obvious distress Eye Exam: bilateral normal Ears, Nose, Throat: hearing grossly normal, normal ENT inspection Neck: full range of motion, supple Respiratory: lungs clear, normal breath sounds, no respiratory distress, no accessory muscle use Cardiovascular/Chest: normal peripheral pulses, no edema, tachycardia Peripheral Pulses: radial,right: 2+, radial,left: 2+ Gastrointestinal/Abdominal: other - obese. Right upper quadrant discomfort palpation. Rectal Exam: deferred Back Exam: other - right flank discomfort. 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 This appears to be due to significant constipation. She will be written for GoLYTELY to take this evening to get cleaned out. She does need to take her routine daily medications when she gets home. She needs to keep h erself well hydrated. Mild tachycardia is likely related to not taking her home medications as morning. Laboratory work and imaging is otherwise reassuring. ER warnings were given. Follow-up with primary care doctor towards the end of the week. - Results/Orders Results/Orders: Laboratory Tests 08/12/19 08/12/19 08/12/19 11:00 11:00 11:00 WBC 12.5 H RBC 5.50 H Hgb 14.0 Hct 42.7 MCV 77.6 L MCH 25.6 L MCHC 32.9 L RDW 17.6 H Plt Count 356 MPV 8.1 Absolute Neuts (auto) 9.80 H Absolute Lymphs (auto) 1.50 Absolute Monos (auto) 0.60 Absolute Eos (auto) 0.40 Absolute Basos (auto) 0.10 Neutrophils % 78.6 H Lymphocytes % 12.0 L Monocytes % 5.2 Eosinophils % 3.5 Basophils % 0.7 PT 9.9 INR 0.99 PTT (SP) 26.5 Sodium 140 Potassium 3.5 L Chloride 109 Carbon Dioxide 18 L Anion Gap 16.5 BUN 9 Creatinine 0.42 L BUN/Creatinine Ratio 21.4 H Random Glucose 133 H Serum Osmolality 280.0 Lactic Acid Calcium 9.5 Magnesium 1.8 Total Bilirubin 0.8 AST 29 ALT 16 Alkaline Phosphatase 76 Creatine Kinase 101 CK-MB (CK-2) 4.1 CK-MB (CK-2) % Not Reportable Troponin I 0.04 Serum Total Protein 6.9 Albumin 3.6 Globulin 3.3 Albumin/Globulin Ratio 1.1 Amylase 38 Lipase 15 L Urine Color Urine Appearance Urine pH Ur Specific [place] Urine Protein Urine Glucose (UA) Urine Ketones Urine Blood Urine Nitrite Urine Bilirubin Urine Urobilinogen Ur Leukocyte Esterase Urine RBC Urine WBC Ur Epithelial Cells Ur Transition Epith Cell Urine Bacteria Urine Mucus 08/12/19 08/12/19 11:00 12:28 WBC RBC Hgb Hct MCV MCH MCHC RDW Plt Count MPV Absolute Neuts (auto) Absolute Lymphs (auto) Absolute Monos (auto) Absolute Eos (auto) Absolute Basos (auto) Neutrophils % Lymphocytes % Monocytes % Eosinophils % Basophils % PT INR PTT (SP) Sodium Potassium Chloride Carbon Dioxide Anion Gap BUN Creatinine BUN/Creatinine Ratio Random Glucose Serum Osmolality Lactic Acid 1.9 Calcium Magnesium Total Bilirubin AST ALT Alkaline Phosphatase Creatine Kinase CK-MB (CK-2) CK-MB (CK-2) % Troponin I Serum Total Protein Albumin Globulin Albumin/Globulin Ratio Amylase Lipase Urine Color Yellow Urine Appearance Clear Urine pH 6.0 Ur Specific [place] 1.015 Urine Protein 100 H Urine Glucose (UA) Negative Urine Ketones 15 H Urine Blood Trace-lysed H Urine Nitrite Negative Urine Bilirubin Negative Urine Urobilinogen 0.2 Ur Leukocyte Esterase Negative Urine RBC 1-3 Urine WBC 3-5 H Ur Epithelial Cells 1-3 Ur Transition Epith Cell 0-1 Urine Bacteria [address] scan of the abdomen and pelvis shows no evidence of acute renal pathology. She does have significant constipation around the hepatic flexure area. No evidence of continued diverticulitis. Departure - Departure Clinical Impression: Constipation Qualifiers: Constipation type: unspecified constipation type Qualified Code(s): K59.00 - Constipation, unspecified Disposition: Discharge to Home or Self Care Condition: Fair Departure Forms: ED Discharge - Pt. Copy, Patient Portal Self Enrollment Instructions: Constipation, Adult (DC) Diet: regular diet - High-fiber Activity: increase activity as tolerated Referrals: Ash Guerra MD [Primary Care Provider] - 1-2 Weeks Home Medications: Ambulatory Orders Bisoprolol & Hydrochlorothiazi [Bisoprolol Fumarate/[place] 5-6.25 mg] 1 tab PO DAILY 09/08/18 Duloxetine HCl [Cymbalta] 60 mg PO DAILY 09/08/18 Gabapentin [Neurontin] 1,200 mg PO TID 09/08/18 Acetamin W/Cod #3 Tab [Tylenol w/CODEINE #3] 1 ea PO Q8HR 03/18/19 Cyanocobalamin Inj [Vitamin B-12 Inj] 1,000 mcg IM WKLY 03/18/19 Cyclobenzaprine Tab (ER Disp) [Flexeril Tab (ER Dispense)] 1 tablet PO PRN PRN 03/18/19 Fluticasone Propionate (Nasal) [Fluticasone Propionate] 50 mcg NA PRN PRN 03/18/19 cloNAZepam [Klonopin] 1 tablet PO DAILY 03/18/19 Ciprofloxacin [Cipro] 500 mg PO BID #20 tab 07/15/19 Ondansetron Odt (ER Disp) [Zofran ODT (ER DISP)] 4 mg PO Q8H PRN #7 tab 07/15/19 metroNIDAZOLE [Flagyl] 500 mg PO Q8H #30 tab 07/15/19 Additional Instructions: the patient is a 69-year-old female presenting with right abdominal and flank pain. This appears to be due to significant constipation. She will be written for GoLYTELY to take this evening to get cleaned out. She does need to take her routine daily medications when she gets home. She needs to keep herself well hydrated. Mild tachycardia is likely related to not taking her home medications as morning. Laboratory work and imaging is otherwise reassuring. the patient does need to take a fiber supplement such as FiberCon or Metamucil daily. I would also recommend that she take MiraLAX 3 or 4 times a week to prevent this from happening again. ER warnings were given. Follow-up with primary care doctor towards the end of the week.
[2019-08-12 13:12] VITALS: BP 114/72; TEMP 98.2
== END 2019-08-12 13:05 | disposition home or self-care (01) ==
LOC: ER 10:43
DX: K59.00 Constipation, unspecified (principal); R10.9 Unspecified abdominal pain; R11.0 Nausea; I10 Essential (primary) hypertension; K21.9 Gastro-esophageal reflux disease without esophagitis; Z87.19 Personal history of other diseases of the digestive system; Z79.899 Other long term (current) drug therapy; Z88.8 Allergy status to other drugs, medicaments and biological substances; Z88.5 Allergy status to narcotic agent
CPT/HCPCS: 74176; 80053; 81001; 82150; 82550; 82553; 83605; 83690; 83735; 84484; 85025; 85610; 85730; 87040; A4216; J1170; J2550

== ENCOUNTER 2019-08-13 05:33 | Observation (INO) | payer MEDICARE ==
--- NOTE | 2019-08-13 05:59 | ED.PDOC ---
History of Present Illness - General Chief Complaint: Back Pain or Injury Stated Complaint: right flank pain Time Seen by Provider: 08/13/19 05:47 Source: patient Exam Limitations: no limitations - History of Present Illness Initial Comments: the patient is a 69-year-old female presenting to emergency room secondary to persistent right-sided abdominal and flank pain. She was seen yesterday and had a workup including laboratory work and a CT scan. The only significant pathology noted was significant constipation around the hepatic flexure where she was hurting. The patient was referred for GoLYTELY to take to get cleaned out. The patient apparently took a couple of cups of it but felt that it made her sick in her stomach. She has since had 2 small to medium bowel movements. She is still having significant pain. No fever. No vomiting though she feels like she needs to vomit. No new symptoms otherwise. Two-view x-ray of the abdomen will be obtained to see if there is any significant change. Timing/Duration: constant Severity: severe Improving Factors: nothing Associated Symptoms: nausea/vomiting Allergies/Adverse Reactions: Allergies Meperidine Allergy (Verified 08/13/19 06:01) Metoclopramide [From Reglan] Allergy (Verified 08/13/19 06:01) Morphine Allergy (Verified 08/13/19 06:01) Home Medications: Ambulatory Orders Bisoprolol & Hydrochlorothiazi [Bisoprolol Fumarate/[place] 5-6.25 mg] 1 tab PO DAILY 09/08/18 Duloxetine HCl [Cymbalta] 60 mg PO DAILY 09/08/18 Gabapentin [Neurontin] 1,200 mg PO TID 09/08/18 Acetamin W/Cod #3 Tab [Tylenol w/CODEINE #3] 1 ea PO Q8HR 03/18/19 Cyanocobalamin Inj [Vitamin B-12 Inj] 1,000 mcg IM WKLY 03/18/19 Cyclobenzaprine Tab (ER Disp) [Flexeril Tab (ER Dispense)] 1 tablet PO PRN PRN 03/18/19 Fluticasone Propionate (Nasal) [Fluticasone Propionate] 50 mcg NA PRN PRN 03/18/19 cloNAZepam [Klonopin] 1 tablet PO DAILY 03/18/19 Ciprofloxacin [Cipro] 500 mg PO BID #20 tab 07/15/19 Ondansetron Odt (ER Disp) [Zofran ODT (ER DISP)] 4 mg PO Q8H PRN #7 tab 07/15/19 metroNIDAZOLE [Flagyl] 500 mg PO Q8H #30 tab 07/15/19 Review of Systems - Review of Systems Constitutional: States: malaise EENTM: States: no symptoms reported Respiratory: States: no symptoms reported Cardiology: States: no symptoms reported Gastrointestinal/Abdominal: States: see HPI, abdominal pain, constipation, nausea Genitourinary: States: no symptoms reported Musculoskeletal: States: back pain Skin: States: no symptoms reported Neurological: States: see HPI - chronic changes related to previous diagnoses, anxiety Endocrine: States: no symptoms reported All other Systems: No Change from Baseline Past Medical History (General) - Patient Medical History Hx Stroke: No Hx Congestive Heart Failure: No Hx Hypertension: Yes Hx Diabetes: No Hx Gastroesophageal Reflux: Yes Hx MRSA: No - Vaccination History Hx Influenza Vaccination: Yes Hx Pneumococcal Vaccination: Yes - Social History Hx Tobacco Use: No Hx Alcohol Use: No Hx Substance Use: No Hx Depression: No Hx Physical Abuse: No Hx Emotional Abuse: No Hx Suspected Abuse: No - Female History Patient : No Family Medical History - Family History Mother Living Status: Hx Family Hypertension: Yes - dad Hx Family Diabetes: Yes - dad,brother Hx Family Cancer: Yes - mom-uterine;brother-kidney Hx Family;Other: dementia-dad Physical Exam - Physical Exam General Appearance: Alert, Anxious, Obvious distress Eye Exam: bilateral normal Ears, Nose, Throat: hearing grossly normal, normal ENT inspection Neck: full range of motion, supple Respiratory: lungs clear, normal breath sounds, no respiratory distress, no accessory muscle use Cardiovascular/Chest: normal peripheral pulses, regular rate, rhythm, no edema Peripheral Pulses: radial,right: 2+, radial,left: 2+ Gastrointestinal/Abdominal: other - obese. Pain is still primarily localized to the right upper quadrant and right flank. Rectal Exam: deferred Back Exam: CVA tenderness (R) Extremity: normal capillary refill, other - chronic changes related to previous diagnoses. 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 She was unable to tolerate very much of the GoLYTELY. stool output appears to be minimal. Additionally she has not taken several of her blood pressure and chronic pain medications over the last 24 hours likely worsening the pain crisis. She is mildly tachycardic as a result. The patient is going to be admitted for slow cleanout over the next 24 hours with GoLYTELY. She will also be admitted for pain control as needed. She does understand that large amounts of opioids are counterproductive with constipation. she did take a hydrocodone just prior to coming up. The patient does have significant mobility limitations and will require the help with getting back and forth to the bathroom during the cleanout. She was given her morning doses of her chronic pain and blood pressure medications here and now before we restart the GoLYTELY. I believe this will go a long way towards reducing her pain. Obviously if additional symptoms develop, or symptoms change, then additional workup may be warranted that points to a different source, however at this time constipation seems to still be the most likely source of the pain for this patient. - Results/Orders Results/Orders: two-view abdomen shows a persistent significant stool. No evidence of other acute pathology on the plain x-ray. Departure - Departure Clinical Impression: Constipation Qualifiers: Constipation type: slow transit constipation Qualified Code(s): K59.01 - Slow transit constipation Disposition: Admit Patient Departure Forms: ED Discharge - Pt. Copy, Patient Portal Self Enrollment Referrals: Ash Guerra MD [Primary Care Provider] - 1-2 Weeks Home Medications: Ambulatory Orders Bisoprolol & Hydrochlorothiazi [Bisoprolol Fumarate/[place] 5-6.25 mg] 1 tab PO DAILY 09/08/18 Duloxetine HCl [Cymbalta] 60 mg PO DAILY 09/08/18 Gabapentin [Neurontin] 1,200 mg PO TID 09/08/18 Acetamin W/Cod #3 Tab [Tylenol w/CODEINE #3] 1 ea PO Q8HR 03/18/19 Cyanocobalamin Inj [Vitamin B-12 Inj] 1,000 mcg IM WKLY 03/18/19 Cyclobenzaprine Tab (ER Disp) [Flexeril Tab (ER Dispense)] 1 tablet PO PRN PRN 03/18/19 Fluticasone Propionate (Nasal) [Fluticasone Propionate] 50 mcg NA PRN PRN 03/18/19 cloNAZepam [Klonopin] 1 tablet PO DAILY 03/18/19 Ciprofloxacin [Cipro] 500 mg PO BID #20 tab 07/15/19 Ondansetron Odt (ER Disp) [Zofran ODT (ER DISP)] 4 mg PO Q8H PRN #7 tab 07/15/19 metroNIDAZOLE [Flagyl] 500 mg PO Q8H #30 tab 07/15/19 Decision To Admit - Decistion To Admit Decision to Admit Reason: Medical Nature Decision to Admit Date: 08/13/19 Decision to Admit Time: 06:53
[2019-08-13] MEDS ORDERED: METOPROLOL TARTRATE 50 MG TAB PO ONE (06:22)
[2019-08-13] MEDS ORDERED: GABAPENTIN 100 MG CAP PO ONE (06:22)
[2019-08-13] MEDS ORDERED: CYCLOBENZAPRINE HCL 10 MG TAB PO ONE (06:22)
[2019-08-13] MEDS ORDERED: DULoxetine HCL 30 MG CAP PO ONE (06:23)
[2019-08-13] MEDS ORDERED: diazePAM 2 MG TAB PO ONE (06:24)
--- NOTE | 2019-08-13 06:40 | RAD ---
EXAM: XR Abdomen, 2 Views CLINICAL HISTORY: The patient is 69 years old and is Female; persistent abdominal and back pain TECHNIQUE: Frontal view of the abdomen/pelvis with upright view of the abdomen. COMPARISON: No relevant prior studies available. FINDINGS: INTRAPERITONEAL SPACE: No free air. GASTROINTESTINAL TRACT: Bowel gas pattern is nonobstructive. No dilated loops of bowel are seen. No abnormal PATIENT or soft tissue masses are noted. BONES/JOINTS: Scoliotic curvature of the spine is present. Extensive multilevel intervertebral disc space narrowing and osteophyte formation throughout the thoracolumbar spine is present. SOFT TISSUES: Surgical clips are present within the right upper quadrant. IMPRESSION: 1. Nonobstructive bowel gas pattern. 2. Extensive degenerative change of the spine. Electronically signed by: Bella Centeno MD 08/13/2019 6:39 AM [facility]
--- NOTE | 2019-08-13 08:04 | HP ---
SUPERVISING PHYSICIAN: Edy Colby MD CHIEF COMPLAINT: Abdominal pain. HISTORY OF PRESENT ILLNESS: This is a 69-year-old female who came to the Emergency Room for significant right sided abdominal pain and right flank pain. She was seen in the ER the day prior with labs and CT scan. CT scan at that time did not show any significant inflammation or infectious source, however, showed significant constipation right around the hepatic flexure in the exact place she was hurting. She was given a prescription for GoLYTELY and sent home, however, when she got home and drank a couple of cups of it, it made her sick to her stomach and she was unable to take her regular medications. She did, however, have two small bowel movements with it. She came to the ER due to the feeling that she needed to vomit along with persistent abdominal pain. She had an abdominal x-ray in the ER which did not show any acute pathology. Labs are unremarkable, but due to the intractable pain and inability to tolerate GoLYTELY, she was referred for observation. At the time of examination, the patient is complaining of some right flank pain. She was given some pain medication in the Emergency Room earlier. She takes hydrocodone on a regular basis. PAST MEDICAL HISTORY: 1. Polio. 2. Hypertension. 3. Diverticulosis. 4. Gastroesophageal reflux disease. 5. Osteoarthritis. 6. Carpal tunnel syndrome. 7. Anemia. 8. Restless leg syndrome. PAST SURGICAL HISTORY: 1. Appendectomy. 2. Cholecystectomy. 3. Three C-sections. 4. Hysterectomy. 5. Laparoscopic Sabino fundoplication. 6. Lumbar spine surgery. 7. Multiple musculoskeletal surgeries. 8. Carpal tunnel release. 9. Left parotidectomy. 10. Left rotator cuff surgery. 11. Spinal cord cyst removal. MEDICATIONS: Please see medication reconciliation list once it is verified in the computer. ALLERGIES: DEMEROL, MORPHINE AND REGLAN. FAMILY HISTORY: Father had type 2 diabetes. Mother had hypertension. A brother had renal cell carcinoma. SOCIAL HISTORY: She is and has one child. She has a distant history of smoking. She socially drinks, no illegal drugs. REVIEW OF SYSTEMS: CONSTITUTIONAL: No fever or chills. No recent weight loss or weight gain. HEENT: No headaches, vision changes, ear pain, nasal congestion or throat pain. RESPIRATORY: No cough, hemoptysis or pleuritic chest pain. CARDIOVASCULAR: No chest pain, palpitations or peripheral edema. GASTROINTESTINAL: Positive for some nausea, no vomiting. Positive for constipation, positive for right sided abdominal pain. GENITOURINARY: No dysuria, frequency or flank pain. MUSCULOSKELETAL: No acute complaints. 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 NEUROLOGIC: No syncope, paresthesias or seizures. PHYSICAL EXAMINATION: VITAL SIGNS: Blood pressure 121/82. Heart rate 80. Respiratory rate 18. Temperature 97.6. Oxygen saturation 96%. GENERAL: Ms. Olivas is a 69-year-old female who is in no active distress currently. NEUROLOGIC: The patient is alert and oriented. LUNGS: Clear to auscultation bilaterally. CARDIOVASCULAR: Regular rate and rhythm. Normal S1, S2. ABDOMEN: Soft. Positive bowel sounds. Tenderness to palpation in mid to right upper quadrant. No significant lower quadrant pain. GENITOURINARY: Deferred. EXTREMITIES: Lower extremities with no edema. Pulses 2+. ASSESSMENT: 1. Intractable abdominal pain secondary to colonic constipation at the hepatic flexure. 2. Chronic pain syndrome requiring p.o. narcotics. 3. Post-polio syndrome. 4. Gastroesophageal reflux disease. 5. Hypertension. 6. History of diverticulosis without diverticulitis. 7. History of anemia. PLAN: At this time, the patient will be admitted for observation. We will try to assist her clearing out her colon. I am going to change the GoLYTELY to mag citrate to reduce volume. In the interim, I will give her some pain medication and nausea medication to assist with the symptoms. Hopefully she can leave in the afternoon or tomorrow morning pending results from the medications. #[id number] [facility]
[2019-08-13] MEDS ORDERED: fentaNYL CITRATE INJ 50 MCG/ML AMP IV PRN (08:39)
[2019-08-13] MEDS ORDERED: MAGNESIUM CITRATE 300 ML BTTL PO ONE (08:39)
[2019-08-13] MEDS ORDERED: ONDANSETRON INJ 4 MG/2 ML VIAL IV PRN (08:43)
[2019-08-13] MEDS ORDERED: SODIUM CHLORIDE 0.9% (FLUSH) 10 ML SYG IV PRN (11:14)
[2019-08-13] MEDS ORDERED: IV SET AND CAP CHANGE INJ INJ SCH (11:30)
[2019-08-13] MEDS ORDERED: CYCLOBENZAPRINE TAB (ER DISP) 10 MG TAB PO PRN (12:21)
[2019-08-13] MEDS ORDERED: NORCO PO PRN (12:21)
[2019-08-13] MEDS: [UNRECOGNIZED DRUG - OTHER] PO SCH (12:47)
[2019-08-13] MEDS ORDERED: HYDROcodone 5MG/APAP 325MG 1 EA TAB PO PRN (14:15)
[2019-08-13] MEDS: GABAPENTIN 300 MG CAP PO SCH ×2 (14:27→20:01)
[2019-08-13] MEDS: FLUTICASONE PROP 0.05% NASAL 16 GM BTTL BNAS SCH (15:03)
[2019-08-13] MEDS ORDERED: CYCLOBENZAPRINE HCL 10 MG TAB PO PRN (15:03)
[2019-08-13] MEDS ORDERED: diazePAM 2 MG TAB ONE (19:01)
[2019-08-13] MEDS: diazePAM 5 MG TAB PO SCH (20:03)
[2019-08-13] MEDS ORDERED: DIAZEPAM 10 MG PO SCH (21:00)
[2019-08-14] MEDS: GABAPENTIN 300 MG CAP PO SCH (08:31)
[2019-08-14] MEDS: diazePAM 5 MG TAB PO SCH (08:31)
[2019-08-14] MEDS: [UNRECOGNIZED DRUG - OTHER] PO SCH (08:32)
[2019-08-14] MEDS: FLUTICASONE PROP 0.05% NASAL 16 GM BTTL BNAS SCH (08:32)
--- NOTE | 2019-08-14 08:50 | RAD ---
Procedure: XR ABDOMEN 2 VIEWS SUPINE ERECT Exam Date: 08/14/2019 Ordering Provider: Gail James NP Clinical Indication: constipation Comparison: 08/13/2019 Findings: Surgical clips in right upper quadrant. Nonobstructive bowel gas pattern. There is no pneumoperitoneum. There are no suspicious calcifications. There is no acute osseous abnormality. Scoliosis. Impression: 1. No acute findings. Electronically signed by: Brayden Sanchez MD 08/14/2019 8:49 AM [facility]
[2019-08-14] MEDS ORDERED: NON-FORMULARY MEDICATION 1 EA MIS (Duloxetine Hcl [Cymbalta] 60 MG) PO SCH (09:00)
[2019-08-14] MEDS ORDERED: DULoxetine HCL 30 MG CAP PO SCH (09:00)
[2019-08-14 09:30] VITALS: BP 126/81; TEMP 98; O2SAT 98
--- NOTE | 2019-08-14 11:54 | DS ---
SUPERVISING PHYSICIAN: Edy Colby MD DISCHARGE DIAGNOSIS: 1. Intractable abdominal pain secondary to colonic constipation at the hepatic flexure. 2. Chronic pain syndrome requiring p.o. narcotics. 3. Post-polio syndrome. 4. Gastroesophageal reflux disease. 5. Hypertension. 6. History of diverticulosis without diverticulitis. 7. History of anemia. HISTORY OF PRESENT ILLNESS: This is a 69-year-old female who came to the Emergency Room with significant right sided abdominal pain and right flank pain. She was seen in the Emergency Room the day prior with labs and CT scan. CT scan at that time did not show any significant inflammation or infectious source, however, showed significant constipation around the hepatic flexure in the exact place she was hurting. She was given a prescription for GoLYTELY and sent home, however, when she got home and drank a couple of cups of it, it made her sick to her stomach and she was unable to take her regular medications. She did, however, have two small bowel movements with it. She came to the ER due to the feeling that she needed to vomit along with persistent abdominal pain. Her abdominal x-ray in the ER did not show any acute pathology. Labs were unremarkable, but due to the intractable pain and inability to tolerate GoLYTELY, she was referred for observation. At the time of examination, the patient was complaining of some right flank pain. She was given some pain medication in the Emergency Room. She takes hydrocodone on a regular basis. HOSPITAL COURSE: She was admitted for observation. Her laxative was changed from GoLYTELY to mag citrate. She was also given pain medications as well as nausea medications. She did have several bowel movements. She had no other complications during her stay. She did have a good bowel clean-out and today, she will be discharged home in stable condition. LABORATORY: Her labs were from her previous ER visit and her WBCs were slightly high at 12.5. She did have a slight left shift on differential, but the remainder of her CBC was unremarkable. Her chemistry showed sodium 140, potassium 3.5, chloride 109, carbon dioxide 18, BUN 9, creatinine 0.42. Glucose 133, lactic acid 1. Her liver enzymes were within normal limits. Amylase 38, lipase 15. Abdomen and pelvis CT is as the history of present illness. Her first abdominal x-ray showed 1) Nonobstructive bowel gas pattern. 2) Extensive degenerative changes of the spine. Today, her abdominal x-ray shows no acute findings. DISCHARGE PLAN: The patient will be discharged home in stable condition. She is to resume her previous diet as well as her previous activity. In addition to her routine home medications, I have also given a prescription of MiraLAX daily, to discuss with Dr. Guerra continuation of that as well as a possible followup with her GI physician. She is to followup with the hospital or Dr. Guerra' office for any problems or complications. DISCHARGE MEDICATIONS: 1. Cymbalta. 2. Neurontin. 3. Fumarate/hydrochlorothiazide. 4. Flexeril. 5. Fluticasone. 6. Klonopin. 7. Zofran. 8. [place]. 9. Diazepam. 10. MiraLAX. #[id number] MTDD
== END 2019-08-14 11:30 | disposition home or self-care (01) ==
LOC: ER 05:33 → MS 08:03
PROVIDERS: ADMIT Nurse Practitioner; ATTEND Nurse Practitioner Acute Care
DX: K59.03 Drug induced constipation (principal); T40.2X5A Adverse effect of other opioids, initial encounter; G89.4 Chronic pain syndrome; G14 Postpolio syndrome; K21.9 Gastro-esophageal reflux disease without esophagitis; I10 Essential (primary) hypertension; K57.30 Diverticulosis of large intestine without perforation or abscess without bleeding; G25.81 Restless legs syndrome; M19.90 Unspecified osteoarthritis, unspecified site; Z86.2 Personal history of diseases of the blood and blood-forming organs and certain disorders involving the immune mechanism; Z79.891 Long term (current) use of opiate analgesic; Z79.899 Other long term (current) drug therapy; Z88.6 Allergy status to analgesic agent; Z88.8 Allergy status to other drugs, medicaments and biological substances; Z90.49 Acquired absence of other specified parts of digestive tract; Z90.710 Acquired absence of both cervix and uterus
CPT/HCPCS: 96374; 96375; J3010; J2405; 74019 ×2; 99285; G0378

== ENCOUNTER → 2019-08-20 | Outpatient (CLI) | payer MEDICARE ==
--- NOTE | 2019-08-20 19:27 | MRI ---
EXAM DESCRIPTION: Thoracic Spine w/o Contrast: Magnetic Resonance Imaging. CLINICAL HISTORY: THORACIC SPONDYLOSIS WITH RADICULOPATHY COMPARISON: MRI lumbar spine 31 July 2019. TECHNIQUE: Multiplanar, multiple standard sequences, non contrast MRI, thoracic spine. FINDINGS: T5-T6 disc desiccation and minimal disc space loss. Posterior midline bulge not abutting the cord. Mild canal narrowing. Mild bilateral foraminal narrowing. Left facet joint negative, with minimal arthrosis medial right facet joint abutting the posterior cord. Moderate canal narrowing. T10-T11: Disc desiccation with mild to moderate disc space loss and endplate erosions anterior disc bulge with large spurs. Disc bulging in the midline contacting the cord and to the left of midline with disc osteophyte complex and hypertrophic left facet encroaching on the foramen which is markedly stenotic. Moderate narrowing right foramen. T11-T12: Spondylosis moderate with anterior disc bulge and large spurs. Posterior disc bulge impressing on the cord with borderline mild canal stenosis. Borderline mild left foraminal stenosis with moderate right foraminal stenosis Remaining discs with relatively normal normal signal. Disc spaces are preserved. Canal and foramina are patent. No scoliosis. Facet joints are unremarkable. Conus terminates at L1. Cord with normal signal, no compression. Convex left T10-T12 curvature. Paravertebral soft tissues with muscle atrophy. Otherwise normal marrow signal in the remaining vertebral bodies and the posterior elements. Vertebral bodies are not compressed at any level. IMPRESSION: 1. Levo scoliosis T10-T12 with advanced degeneration and spondylosis. T10-T11 disc bulge in the midline contacting the cord. Left side spondylosis and disc osteophyte complex resulting in left foraminal stenosis. Most likely compromise left T10 nerve. 2. Advanced spondylosis T11-T12 with borderline right foraminal stenosis and moderate right neural foraminal stenosis and compromise right T12 nerve. Borderline canal stenosis. 3. Other findings as detailed above. Electronically signed by: Beny Bustillos MD 08/20/2019 7:26 PM [facility]
== END ==
LOC: MRI 09:49
DX: M48.061 Spinal stenosis, lumbar region without neurogenic claudication (principal); M47.26 Other spondylosis with radiculopathy, lumbar region; M47.24 Other spondylosis with radiculopathy, thoracic region; M41.84 Other forms of scoliosis, thoracic region; G14 Postpolio syndrome

== ENCOUNTER → 2019-08-28 | Outpatient (CLI) | payer MEDICARE ==
--- NOTE | 2019-08-28 16:09 | RAD ---
EXAM DESCRIPTION: Lumbar Spine 5 Views CLINICAL HISTORY: SPINAL STENOSIS LUMBAR REGION COMPARISON: None. TECHNIQUE: 5 views FINDINGS: The lumbar vertebral bodies are in good AP alignment. Extensive posterior fusion is observed throughout the lumbar and lower thoracic spine. Surgical clips are seen in the right upper quadrant. Marked left lumbar scoliosis is observed. The exam does reveal some significant intervertebral disc degenerative changes in the lower thoracic spine. Mild osteopenia is observed. IMPRESSION: 1. Marked left lumbar scoliosis. 2. Extensive posterior lumbar fusion. 3. Diffuse degenerative changes are observed most pronounced in the lower thoracic region. Electronically signed by: Dao Monteiro MD 08/28/2019 4:[address] [facility]
== END ==
LOC: RAD 10:35
PROVIDERS: ATTEND Family Medicine Sports Medicine
DX: M48.062 Spinal stenosis, lumbar region with neurogenic claudication (principal); M41.86 Other forms of scoliosis, lumbar region; M47.896 Other spondylosis, lumbar region

== ENCOUNTER → 2020-03-31 | Outpatient (CLI) | payer MEDICARE | LOC: GMAJ 14:57 | PROVIDERS: ATTEND Family Medicine | DX: M25.541 Pain in joints of right hand (principal); I10 Essential (primary) hypertension; R30.0 Dysuria ==

== ENCOUNTER → 2020-05-07 | Outpatient (CLI) | payer MEDICARE ==
--- NOTE | 2020-05-07 15:24 | RAD ---
EXAM DESCRIPTION: Wrist,Right 3 Views CLINICAL HISTORY: 70 years Female, PAIN IN RIGHT WRIST COMPARISON: None. Findings: 3 view(s)/radiograph(s) Linear nondisplaced scaphoid waist fracture. Widening of the scapholunate interval with settling of the capitate. TFCC chondrocalcinosis. Osteopenia. Mild scattered degenerative changes. Carpal alignment maintained. No other fracture. No dislocation. IMPRESSION: Linear nondisplaced scaphoid waist fracture. Right wrist degenerative changes as above. Electronically signed by: Blas Tsai MD 05/07/2020 3:22 PM CDT
== END ==
LOC: RAD 08:07
PROVIDERS: ATTEND Orthopaedic Surgery
DX: S62.001A Unspecified fracture of navicular [scaphoid] bone of right wrist, initial encounter for closed fracture (principal)